=== PATIENT | female | born 1965 | race African-American/Black ===

== ENCOUNTER 2020-01-11 21:25 | Inpatient (IN) | payer MEDICAID ==
[~2020-01-11] VITALS: Ht 175.3 cm; Wt 115.3 kg
[~2020-01-11 21:25] MED LIST: AMLO5TAB4 PO; ASPI-1497 PO; CARV12.545 PO; CLON-457 PO; LORA0.5T2 PO; TICA90TA PO
[2020-01-11 23:20] LABS: BASOPHILS % 0.5 % (0.0-2.0); EOSINOPHILS % 1.1 % (0.0-5.0); HEMATOCRIT. 41.9 % (36.0-48.0); HEMOGLOBIN. 14.1 g/dL (12.0-16.0); LYMPHOCYTES % 36.9 % (20.0-50.0); MEAN PLATELET VOLUME 10.1 fl (7.4-10.4); MONOCYTES % 6.2 % (2.0-8.0); NEUTROPHILS % 55.3 % (40.0-76.0); PLATELET 195 x1000/uL (130-400); RED BLOOD CELL COUNT 4.71 mill/uL (4.2-5.4); RED CELL DISTRIBUTION WIDTH 13.5 % (11.6-14.6)
[2020-01-11 23:25] LABS: CHLORIDE 104 mEq/L (98-107)
[2020-01-11 23:29] LABS: PROTHROMBIN TIME 10.9 sec (9.6-11.0)
[2020-01-12] MEDS ORDERED: KETOROLAC 30MG/ML VIAL IV SCH (01:00)
[2020-01-12] MEDS ORDERED: POTASSIUM CHLORIDE 20MEQ TABLET SR PO SCH (01:00)
[2020-01-12] MEDS ORDERED: CLONIDINE 0.1MG TABLET PO SCH (01:00)
[2020-01-12] MEDS ORDERED: NITROGLYCERIN 0.4MG TABLET SL SL SCH (01:00)
[2020-01-12] MEDS ORDERED: ASPIRIN 81MG TABLET PO SCH (01:00)
[2020-01-12 08:00] VITALS: BP_SYST 150; BP_SYST 155; BP_DIAS 84; BP_DIAS 87
[2020-01-12 12:00] VITALS: BP 137/77
[2020-01-12] MEDS ORDERED: IPRATROPIUM/ALBUTEROL 0.5-3(2.5)MG/3ML NEB HHN PRN (12:00)
[2020-01-12] MEDS ORDERED: DIPHENHYDRAMINE 50MG/ML VIAL IV PRN (12:00)
[2020-01-12] MEDS ORDERED: MORPHINE SULFATE 2 MG/ML CPJ (NOT FOR IM USE) IV PRN (12:00)
[2020-01-12] MEDS ORDERED: CLONIDINE 0.1MG TABLET PO PRN (12:00)
[2020-01-12] MEDS ORDERED: ENOXAPARIN 40MG/0.4ML SYR SUBCUT SCH (12:00)
[2020-01-12] MEDS ORDERED: ONDANSETRON HCL 4MG/2ML INJ IV PRN (12:00)
[2020-01-12] MEDS: ENOXAPARIN 30MG/0.3ML SYR SUBCUT SCH ×2 (12:46→21:11)
[2020-01-12 16:00] VITALS: BP 162/78
[2020-01-12 17:18] LABS: PHOSPHORUS 3.5 mg/dL (2.5-4.9)
[2020-01-12] MEDS: TICAGRELOR 90 MG TABLET PO SCH (17:55)
[2020-01-12] MEDS: CARVEDILOL 12.5MG TABLET PO SCH (17:55)
[2020-01-12] MEDS: DOCUSATE SODIUM 250MG CAPSULE PO SCH (17:55)
[2020-01-12 20:00] VITALS: BP 142/70
[2020-01-12] MEDS: ACETAMINOPHEN 325MG TABLET PO PRN (21:12)
[2020-01-13] VITALS: BP 147/78
[2020-01-13 04:00] VITALS: BP 153/83
[2020-01-13 07:01] LABS: BASOPHILS % 0.2 % (0.0-2.0); EOSINOPHILS % 1.1 % (0.0-5.0); HEMATOCRIT. 42.7 % (36.0-48.0); HEMOGLOBIN. 14.3 g/dL (12.0-16.0); LYMPHOCYTES % 43.7 % (20.0-50.0); MEAN CORPUSCULAR HEMOGLOBIN 29.8 pg (28.0-32.0); MEAN CORPUSCULAR VOLUME 89.1 fL (81.0-99.0); MEAN PLATELET VOLUME 10.4 fl (7.4-10.4); MONOCYTES % 7.9 % (2.0-8.0); NEUTROPHILS % 47.1 % (40.0-76.0); PLATELET 195 x1000/uL (130-400); RED BLOOD CELL COUNT 4.79 mill/uL (4.2-5.4); RED CELL DISTRIBUTION WIDTH 13.8 % (11.6-14.6)
[2020-01-13] MEDS: ACETAMINOPHEN 325MG TABLET PO PRN (07:20)
[2020-01-13 08:00] VITALS: BP 152/65
[2020-01-13 08:42] LABS: CHLORIDE 105 mEq/L (98-107)
[2020-01-13 08:52] LABS: LDL CHOLESTEROL 157 mg/dL (5-100)
[2020-01-13 08:54] LABS: HDL CHOLESTEROL 45 mg/dL (40-59)
[2020-01-13] MEDS ORDERED: AMLODIPINE 5MG TABLET PO SCH (09:00)
[2020-01-13] MEDS: DOCUSATE SODIUM 250MG CAPSULE PO SCH ×2 (09:07→16:50)
[2020-01-13] MEDS: CARVEDILOL 12.5MG TABLET PO SCH ×2 (09:08→16:50)
[2020-01-13] MEDS: ENOXAPARIN 30MG/0.3ML SYR SUBCUT SCH ×2 (09:08→21:25)
[2020-01-13] MEDS: ASPIRIN 81MG EC TABLET PO SCH (09:08)
[2020-01-13] MEDS: TICAGRELOR 90 MG TABLET PO SCH ×2 (09:08→16:50)
[2020-01-13] MEDS: PANTOPRAZOLE SODIUM 40 MG/VIAL IV SCH (09:09)
[2020-01-13] MEDS: LORAZEPAM 0.5MG TABLET PO SCH (09:09)
[2020-01-13] MEDS ORDERED: POTASSIUM CHLORIDE 20MEQ TABLET SR PO NR (10:45)
[2020-01-13 12:00] VITALS: BP 148/68
[2020-01-13] MEDS ORDERED: LACTULOSE 20G/30ML UDC PO NR (12:45)
[2020-01-13 16:00] VITALS: BP 150/78
[2020-01-13 16:22] LABS: *BENZODIAZEPINES SCREEN URINE NEGATIVE (NEGATIVE); *COCAINE SCREEN URINE NEGATIVE (NEGATIVE); METHADONE URINE SCREEN NEGATIVE (NEGATIVE); OPIATES URINE SCREEN NEGATIVE (NEGATIVE)
[2020-01-13 16:23] LABS: *AMPHETAMINES SCREEN URINE NEGATIVE (NEGATIVE); *BARBITURATES SCREEN URINE NEGATIVE (NEGATIVE); CANNABINOID URINE SCREEN PRESUMTIVE POSITIVE (NEGATIVE); PHENCYCLIDINE URINE SCREEN NEGATIVE (NEGATIVE)
[2020-01-13] MEDS ORDERED: BISACODYL 10MG SUPP PR PRN (17:15)
[2020-01-13 20:00] VITALS: BP 147/76
[2020-01-13] MEDS: ATORVASTATIN CALCIUM 40MG TABLET PO SCH (21:24)
[2020-01-13] MEDS: AMLODIPINE 5MG TABLET PO SCH (21:25)
[2020-01-14] VITALS (7 sets, daily range): BP systolic 144–192; BP diastolic 76–110
[2020-01-14] MEDS: DOCUSATE SODIUM 250MG CAPSULE PO SCH ×2 (08:58→17:57)
[2020-01-14] MEDS: LORAZEPAM 0.5MG TABLET PO SCH (08:58)
[2020-01-14] MEDS: ENOXAPARIN 30MG/0.3ML SYR SUBCUT SCH ×3 (08:58→21:54)
[2020-01-14] MEDS: TICAGRELOR 90 MG TABLET PO SCH ×2 (08:58→17:57)
[2020-01-14] MEDS: ASPIRIN 81MG EC TABLET PO SCH (08:58)
[2020-01-14] MEDS: AMLODIPINE 5MG TABLET PO SCH (08:59)
[2020-01-14] MEDS: PANTOPRAZOLE SODIUM 40 MG/VIAL IV SCH (08:59)
[2020-01-14] MEDS: CARVEDILOL 12.5MG TABLET PO SCH ×2 (08:59→21:52)
[2020-01-14] MEDS ORDERED: SORBITOL 70% SOLN 30ML PO NR (12:30)
[2020-01-14] MEDS ORDERED: DILTIAZEM HCL 180MG CAPSULE CD 24HR PO SCH (14:00)
[2020-01-14] MEDS: LOSARTAN POTASSIUM 100 MG TABLET PO SCH (14:21)
[2020-01-14] MEDS ORDERED: CLON0.1T MT (15:31)
[2020-01-14] MEDS ORDERED: LIP40 MT (15:31)
[2020-01-14] MEDS ORDERED: COR12 PO (15:31)
[2020-01-14 15:57] LABS: CHLORIDE 105 mEq/L (98-107)
[2020-01-14] MEDS ORDERED: POTASSIUM CHLORIDE 20MEQ TABLET SR PO NR (16:30)
[2020-01-14] MEDS: ATORVASTATIN CALCIUM 40MG TABLET PO SCH (21:51)
[2020-01-15] VITALS: BP 128/72
[2020-01-15 04:00] VITALS: BP_SYST 143; BP_SYST 171; BP_DIAS 63; BP_DIAS 76
[2020-01-15] MEDS ORDERED: NA PHOS,M-B/NA PHOS,DI-BA ENEMA 118ML PR SCH (05:00)
[2020-01-15 08:00] VITALS: BP 131/73
[2020-01-15 08:39] VITALS: BP 131/73
[2020-01-15] MEDS: ASPIRIN 81MG EC TABLET PO SCH (09:36)
[2020-01-15] MEDS: LORAZEPAM 0.5MG TABLET PO SCH (09:36)
[2020-01-15] MEDS: TICAGRELOR 90 MG TABLET PO SCH (09:36)
[2020-01-15] MEDS: DOCUSATE SODIUM 250MG CAPSULE PO SCH (09:36)
[2020-01-15] MEDS: LOSARTAN POTASSIUM 100 MG TABLET PO SCH (09:36)
[2020-01-15] MEDS: ENOXAPARIN 30MG/0.3ML SYR SUBCUT SCH ×2 (09:37→09:56)
[2020-01-15] MEDS: PANTOPRAZOLE SODIUM 40 MG/VIAL IV SCH (09:37)
[2020-01-15] MEDS: CARVEDILOL 12.5MG TABLET PO SCH (09:37)
== END 2020-01-15 11:40 | disposition home or self-care (01) | DRG 243 ==
LOC: ER 21:25 → 5WST 01-12 02:49 → ENRESERV 01-12 07:55
PROVIDERS: ADMIT Internal Medicine; ATTEND Internal Medicine
DX: K21.9 Gastro-esophageal reflux disease without esophagitis (principal); I11.0 Hypertensive heart disease with heart failure; I16.0 Hypertensive urgency; K59.00 Constipation, unspecified; I50.32 Chronic diastolic (congestive) heart failure; I25.10 Atherosclerotic heart disease of native coronary artery without angina pectoris; G62.9 Polyneuropathy, unspecified; F41.9 Anxiety disorder, unspecified; F12.90 Cannabis use, unspecified, uncomplicated; E78.5 Hyperlipidemia, unspecified; E87.6 Hypokalemia; E66.9 Obesity, unspecified; R26.2 Difficulty in walking, not elsewhere classified; M54.5 Low back pain; J98.11 Atelectasis; Z79.02 Long term (current) use of antithrombotics/antiplatelets; Z95.5 Presence of coronary angioplasty implant and graft; Z68.36 Body mass index [BMI] 36.0-36.9, adult; Z79.82 Long term (current) use of aspirin; Z79.899 Other long term (current) drug therapy; Z68.37 Body mass index [BMI] 37.0-37.9, adult; Z91.19 Patient's noncompliance with other medical treatment and regimen
CPT/HCPCS: 36415; 71045; 74176; 80048; 80053; 80061; 80305; 83735; 84100; 84443; 84484; 85025; 93005; 93306; 93970; 99285; C9113; J1650; J1885; J8499

== ENCOUNTER 2024-05-11 10:23 | Inpatient (IN) | payer OTHER ==
[~2024-05-11] VITALS: Ht 175.3 cm; Wt 105.7 kg
[~2024-05-11 10:23] MED LIST changes: -AMLO5TAB4 PO; -CARV12.545 PO; -CLON-457 PO; +CLON0.1T MT; +COR12 PO; +LIP40 MT
[2024-05-11 11:44] LABS: BASOPHILS % 0.2 % (0.0-2.0); EOSINOPHILS % 3.7 % (0.0-5.0); HEMATOCRIT. 41.6 % (36.0-48.0); HEMOGLOBIN. 13.7 g/dL (12.0-16.0); LYMPHOCYTES % 47.8 % (20.0-50.0); MEAN CORPUSCULAR HEMOGLOBIN 29.7 pg (28.0-32.0); MEAN CORPUSCULAR HGB CONC 33.1 g/dL (31.0-37.0); MEAN CORPUSCULAR VOLUME 89.7 fL (81.0-99.0); MEAN PLATELET VOLUME 10.3 fl (7.4-10.4); MONOCYTES % 7.8 % (2.0-8.0); NEUTROPHILS % 40.5 % (40.0-76.0); PLATELET 216 x1000/uL (130-400); RED BLOOD CELL COUNT 4.64 mill/uL (4.2-5.4); RED CELL DISTRIBUTION WIDTH 13.1 % (11.6-14.6); WHITE BLOOD COUNT 6.2 x1000/uL (4.5-11.0)
[2024-05-11 12:08] LABS: CHLORIDE 106 mEq/L (98-107); POTASSIUM 3.9 mEq/L (3.5-5.1); SODIUM 142 mEq/L (136-145)
[2024-05-11 12:09] LABS: CARBON DIOXIDE 30 mEq/L (21-32)
[2024-05-11 12:10] LABS: CALCIUM 9.4 mg/dL (8.7-10.4)
[2024-05-11 12:14] LABS: CREATININE 0.9 mg/dL (0.6-1.0); GLUCOSE 99 mg/dL (70-105)
[2024-05-11 12:15] LABS: TROPONIN I HIGH SENSITIVITY 6 ng/L (3.0-34); UREA NITROGEN BLOOD 7 mg/dL (9-23)
[2024-05-11 12:16] LABS: ALANINE AMINOTRANSFERASE 36 IU/L (10-49); ALBUMIN 4.2 g/dL (3.2-4.8); ASPARTATE AMINOTRANSFERASE 34 IU/L (<34)
[2024-05-11 12:17] LABS: BILIRUBIN DIRECT 0.2 mg/dL (<=3.0); BILIRUBIN TOTAL 0.6 mg/dL (0.1-1.0); PROTEIN TOTAL 7.2 g/dL (6.0-8.3)
[2024-05-11] MEDS: KETOROLAC 30MG/ML VIAL IV STA (12:43)
[2024-05-11] MEDS: ONDANSETRON HCL 4MG/2ML INJ IV STA (12:44)
[2024-05-11] MEDS: ACETAMINOPHEN 325MG TABLET PO STA (12:44)
[2024-05-11] MEDS: SODIUM CHLORIDE 0.9% 1,000 ML IV ONE (12:44)
[2024-05-11 13:56] LABS: TROPONIN I HIGH SENSITIVITY 6 ng/L (3.0-34)
[2024-05-11] MEDS: IOHEXOL-300 100 ML BOTTLE ONE (14:55)
[2024-05-11] MEDS: PANTOPRAZOLE SODIUM 40 MG/VIAL IV NR (16:17)
[2024-05-11] MEDS: LACTULOSE 20G/30ML UDC PO NR (16:17)
[2024-05-11] MEDS: METOCLOPRAMIDE HCL 10MG/2ML VIAL IV SCH (18:00)
[2024-05-11] MEDS: NA PHOS,M-B/NA PHOS,DI-BA ENEMA 118ML PR NR (18:14)
[2024-05-11] MEDS: LACTULOSE 20G/30ML UDC PO SCH (22:31)
[2024-05-11] MEDS: PANTOPRAZOLE SODIUM 40 MG/VIAL IV SCH (22:31)
[2024-05-11] MEDS ORDERED: LORAZEPAM 0.5MG TABLET PO PRN (23:15)
[2024-05-11 23:16] VITALS: BP 149/59; PULSE 61; RESP 18; TEMP 36.2512
[2024-05-12 04:00] VITALS: BP 160/76; PULSE 60; RESP 19; TEMP 36.22512; O2SAT 100
[2024-05-12] MEDS: CLONIDINE 0.1MG TABLET PO PRN (06:02)
[2024-05-12 07:44] LABS: CARBON DIOXIDE 27 mEq/L (21-32); CHLORIDE 107 mEq/L (98-107); POTASSIUM 3.6 mEq/L (3.5-5.1); SODIUM 142 mEq/L (136-145)
[2024-05-12 07:45] LABS: CALCIUM 9.2 mg/dL (8.7-10.4)
[2024-05-12 07:49] LABS: CREATININE 0.9 mg/dL (0.6-1.0); GLUCOSE 89 mg/dL (70-105)
[2024-05-12 07:50] LABS: UREA NITROGEN BLOOD 8 mg/dL (9-23)
[2024-05-12 08:15] VITALS: BP 142/72; PULSE 59; RESP 20; TEMP 36.61404; O2SAT 98
[2024-05-12] MEDS ORDERED: FAMOTIDINE 20MG TABLET PO SCH (09:00)
[2024-05-12 09:11] LABS: CLARITY URINE CLEAR (CLEAR); COLOR URINE YELLOW (YELLOW); GLUCOSE URINE NEGATIVE (NEGATIVE); KETONES URINE TRACE (NEGATIVE); LEUKOCYTE ESTERASE URINE TRACE (NEGATIVE); NITRITE URINE NEGATIVE (NEGATIVE); OCCULT BLOOD URINE NEGATIVE (NEGATIVE); PH URINE 5.5 (4.5-8.0); PROTEIN URINE NEGATIVE (NEGATIVE); SPECIFIC GRAVITY URINE 1.028 (1.005-1.030)
[2024-05-12 09:29] LABS: BACTERIA URINE FEW; RBC URINE 0-2 /hpf (0-2); SQUAMOUS EPITHELIAL CELL URINE FEW /lpf (RARE/1+); WBC URINE 0-2 /hpf (0-2); YEAST URINE NONE SEEN
[2024-05-12] MEDS: DOCUSATE SODIUM 250MG CAPSULE PO SCH (09:42)
[2024-05-12 11:50] VITALS: BP 123/56; PULSE 85; RESP 18; TEMP 36.55848; O2SAT 98
[2024-05-12 14:04] VITALS: BP 123/56; PULSE 85; TEMP 97.8; O2SAT 98
[2024-05-16 14:07] LABS: FECAL FAT NEUTRAL. Normal (.); FECAL FAT TOTAL. Normal (.)
== END 2024-05-12 16:05 | disposition home or self-care (01) | DRG 254 ==
LOC: ER 10:23 → EDBEDREQ 15:25 → CANBEDREQ 15:54 → 7WST 21:46
PROVIDERS: ADMIT Internal Medicine; ATTEND Internal Medicine
DX: K59.00 Constipation, unspecified (principal); I11.0 Hypertensive heart disease with heart failure; I50.9 Heart failure, unspecified; E78.5 Hyperlipidemia, unspecified; K57.30 Diverticulosis of large intestine without perforation or abscess without bleeding; J98.11 Atelectasis; I25.10 Atherosclerotic heart disease of native coronary artery without angina pectoris; Z95.5 Presence of coronary angioplasty implant and graft
CPT/HCPCS: 36415; 71045; 74177; 80048; 80076; 81003; 82705; 83880; 84484; 85025; 93005; 99285; J1885; J2405; J2470; J2765; J7030; Q9967